=== PATIENT | female | born 1970 | race Caucasian/White ===

== ENCOUNTER 2019-01-20 12:15 | Emergency (ER) | payer SELFPAY ==
[~2019-01-20] VITALS: Ht 160 cm; Wt 81.6 kg
[~2019-01-20 12:15] MED LIST: TYLENOL
[2019-01-20 12:25] VITALS: BP 139/95
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
--- NOTE | 2019-01-20 13:05 | NUR ---
DR GREEN AT BEDSIDE
[2019-01-20] MEDS ORDERED: KETOROLAC 30 MG/ML VIAL IM ONE (13:15)
[2019-01-20] MEDS ORDERED: DIAZEPAM 5 MG TAB PO ONE (13:15)
--- NOTE | 2019-01-20 13:27 | NUR ---
PT REFUSING TORADOL AT THIS TIME
[2019-01-20] MEDS ORDERED: HYDROcodone/APAP 5/325 MG 1 TAB TAB PO ONE (13:30)
--- NOTE | 2019-01-20 13:31 | NUR ---
XRAY AT BEDSIDE
[2019-01-20 14:04] VITALS: BP 132/91
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
== END 2019-01-20 14:04 | disposition home or self-care (01) ==
LOC: MED 12:15
DX: M54.9 Dorsalgia, unspecified (principal); M25.511 Pain in right shoulder; E11.9 Type 2 diabetes mellitus without complications; I10 Essential (primary) hypertension; Z79.899 Other long term (current) drug therapy
CPT/HCPCS: 71045; 81025; 99283; J1885

== ENCOUNTER 2019-11-14 18:22 | Emergency (ER) | payer OTHER ==
[~2019-11-14] VITALS: Ht 160 cm; Wt 93.4 kg
[2019-11-14 18:27] VITALS: BP 164/106
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
[2019-11-14 18:46] VITALS: BP 164/106
--- NOTE | 2019-11-14 18:46 | NUR ---
PATIENT LEFT WITHOUT BEING SEEN BY DR. CANA[place]. NO FURTHER CARE PROVIDED FOR PATIENT.
== END 2019-11-14 18:46 | disposition left against medical advice (07) ==
LOC: MED 18:22
DX: R42 Dizziness and giddiness (principal); Z53.21 Procedure and treatment not carried out due to patient leaving prior to being seen by health care provider

== ENCOUNTER 2022-10-25 22:58 | Emergency (ER) | payer MEDICAID, OTHER ==
[~2022-10-25] VITALS: Ht 160 cm; Wt 83.9 kg
[2022-10-25 23:09] VITALS: BP 169/109
--- NOTE | 2022-10-25 23:13 | NUR ---
to bed ambulatory
--- NOTE | 2022-10-25 23:26 | NUR ---
Patient resting in bed, A/Ox4, chest rise and fall symmetrical, no s/s of distress
--- NOTE | 2022-10-25 23:47 | NUR ---
ER physician assessing patient.
[2022-10-25] MEDS ORDERED: LIDOCAINE MPF 1% 10 MG/ML VIAL INJ ONE (23:50)
[2022-10-26] MEDS ORDERED: CLIN300C52 PO (00:06)
--- NOTE | 2022-10-26 00:15 | NUR ---
Dr Vazquez performin I and D, patient tolerating proceedure well.
--- NOTE | 2022-10-26 00:16 | NUR ---
Dr. Vazquez examining patient.
[2022-10-26] MEDS ORDERED: LISI5TAB18 PO (00:25)
[2022-10-26] MEDS ORDERED: METF-346 PO (00:25)
[2022-10-26] MEDS ORDERED: ALBU0.0912 INH (00:25)
[2022-10-26] MEDS ORDERED: ALBUTEROL 0.083% 2.5 MG/3 ML NEBU INH ONE (00:30)
--- NOTE | 2022-10-26 00:31 | NUR ---
RT called to give breathing treatment, per Dr. Vazquez's orders. RT verbalized understanding.
--- NOTE | 2022-10-26 00:35 | NUR ---
HHN TX GIVEN WITH 0 ADVERSE REACTIONS. V/S STABLE T/O PROCEDURE.
--- NOTE | 2022-10-26 00:36 | NUR ---
Patient resting in bed, A/Ox4, chest rise and fall symmetrical, no c/o pain or s/s of distress.
--- NOTE | 2022-10-26 00:40 | NUR ---
RT with patient.
[2022-10-26 00:47] VITALS: BP 145/92
== END 2022-10-26 00:46 | disposition home or self-care (01) ==
LOC: MED 22:58
DX: L02.415 Cutaneous abscess of right lower limb (principal); L03.115 Cellulitis of right lower limb; I10 Essential (primary) hypertension; E11.9 Type 2 diabetes mellitus without complications; F17.200 Nicotine dependence, unspecified, uncomplicated; Z71.6 Tobacco abuse counseling; Z79.899 Other long term (current) drug therapy; Z79.2 Long term (current) use of antibiotics
CPT/HCPCS: 10060; 94640; 99283; J2001; J7613